=== PATIENT | female | born 1980 | race Caucasian/White ===

== ENCOUNTER 2021-02-14 20:03 | Emergency (ER) | payer MEDICAID ==
[~2021-02-14] VITALS: Ht 157.5 cm; Wt 59.0 kg
[2021-02-14] MEDS ORDERED: LORA-249 MT (23:58)
[2021-02-15 00:27] VITALS: BP 115/82
== END 2021-02-15 00:28 | disposition home or self-care (01) ==
LOC: ER 20:03
DX: F41.0 Panic disorder [episodic paroxysmal anxiety] (principal); F51.02 Adjustment insomnia; Z65.4 Victim of crime and terrorism
CPT/HCPCS: 81025; 99282

== ENCOUNTER 2023-03-16 11:14 | Emergency (ER) | payer MEDICAID, OTHER ==
[~2023-03-16] VITALS: Ht 157.5 cm; Wt 59.0 kg
[~2023-03-16 11:14] MED LIST: LORA-249 MT
[2023-03-16 11:34] VITALS: BP 117/69; PULSE 79; RESP 18; TEMP 98.3; O2SAT 98
[2023-03-16] MEDS ORDERED: MELA5TAB3 MT (12:01)
[2023-03-16] MEDS ORDERED: HYDR50TA55 MT (12:01)
== END 2023-03-16 12:11 | disposition home or self-care (01) ==
LOC: ER 12:10
DX: G47.00 Insomnia, unspecified (principal)
CPT/HCPCS: 99283